=== PATIENT | female | born 1975 | race Two or more races ===

== ENCOUNTER → 2024-10-18 | Outpatient (CLI) | payer MEDICAID, SELFPAY ==
--- NOTE | 2024-10-18 14:00 | XR_ITS ---
Examination: Breast ultrasound, unilateral, left complete October 18, 2024 Date and time of exam: Hours INDICATIONS: Left breast pain 2 months Technique: Real-time benavides scale ultrasonographic imaging performed left breast including all 4 quadrants as well as nipple retroareolar and axillary region. Findings: 12:00 cyst 9 x 12 mm No solid nodules IMPRESSION: BI-RADS Category 2: Benign findings
--- NOTE | 2024-10-18 14:30 | XR_ITS ---
Examination: Diagnostic digital mammography, unilateral, left Computer aided detection 3-D breast Tomosynthesis, unilateral Date and time of exam: October 18, 2024 1436 hours INDICATIONS: Mammogram October 05, 2023 left breast asymmetry 12:00 Technique: Nonmagnified MLO, CC views of the left breast have been obtained, reconstructed from 3-D Tomosynthesis images. R2 computer aided detection program utilized for evaluation of suspicious masses and/or abnormal calcifications. 3-D Tomosynthesis images obtained. Findings: Scattered areas of fibroglandular density 12 mm oval mass circumscribed retroareolar likely corresponding to 12:00 cyst described on left breast sonogram today Impression: BI-RADS category 2: Benign findings Return to yearly follow-up mammography
== END | disposition home or self-care (01) ==
LOC: CDIM 14:12
PROVIDERS: PCP Nurse Practitioner Family; Referring Provider Nurse Practitioner Family; Visit Provider Nurse Practitioner Family
DX: R92.322 Mammographic fibroglandular density, left breast (principal); N60.02 Solitary cyst of left breast
CPT/HCPCS: 76641; 77061; 77065; G0279